=== PATIENT | male | born 1995 | race American Indian/Alaskan Native ===

== ENCOUNTER 2021-09-16 09:54 | Emergency (ER) | payer OTHER ==
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
[2021-09-16] MEDS ORDERED: IBUPROFEN 800 MG TAB PO ONE (14:06)
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
[2021-09-16 15:14] VITALS: BP 112/78
== END 2021-09-16 15:14 | disposition home or self-care (01) ==
LOC: ED 09:54
DX: S39.012A Strain of muscle, fascia and tendon of lower back, initial encounter (principal); Z72.89 Other problems related to lifestyle; Z79.899 Other long term (current) drug therapy; V89.2XXA Person injured in unspecified motor-vehicle accident, traffic, initial encounter; Y93.89 Activity, other specified; Y92.488 Other paved roadways as the place of occurrence of the external cause; Y99.8 Other external cause status
CPT/HCPCS: 71046; 99283